=== PATIENT | female | born 1960 | race Caucasian/White ===

== ENCOUNTER 2017-10-13 17:11 | Emergency (ER) | payer OTHER ==
[~2017-10-13] VITALS: Ht 157.5 cm; Wt 86.2 kg
[2017-10-13] MEDS ORDERED: CLINDAMYCIN PHOS 600 MG/ 4 ML VIAL IM ONE (21:00)
[2017-10-13] MEDS ORDERED: LEVOFLOXACIN 500 MG TAB PO ONE (21:00)
[2017-10-13] MEDS ORDERED: CLINDAMYCIN PHOS 300MG/2ML VIAL ONE (21:02)
[2017-10-13] MEDS ORDERED: LEVOFLOXACIN 500 MG TAB ONE (21:02)
[2017-10-17] MEDS ORDERED: CLINDAMYCIN HC150 MG PO (09:49)
[2017-10-17] MEDS ORDERED: LEVAQUIN500 MG PO (09:49)
[2017-10-17] MEDS ORDERED: FARXIGA PO (09:50)
[2017-10-17] MEDS ORDERED: LEVOTHYROXINE50 MCG PO (09:50)
[2017-10-18] MEDS ORDERED: METFORMIN HCL500 M2 PO (05:31)
== END 2017-10-13 21:16 | disposition home or self-care (01) ==
LOC: ER 17:11
DX: L03.012 Cellulitis of left finger (principal)
CPT/HCPCS: 99282

== ENCOUNTER → 2017-10-14 | Outpatient (CLI) | payer OTHER ==
[~2017-10-14] MED LIST: CLINDAMYCIN HC150 MG PO; FARXIGA PO; LEVAQUIN500 MG PO; LEVOTHYROXINE50 MCG PO; METFORMIN HCL500 M2 PO
--- NOTE | 2017-10-14 18:28 | Diagnostic Imaging Report ---
TECHNIQUE: Magnetic resonance imaging of the LEFT HAND (index finger) was performed WITHOUT injected contrast. HISTORY: Puncture wound, infection, redness, pain, swelling, flexor tenosynovitis COMPARISON: None. FINDINGS: BONES: No focal or infiltrative bone marrow replacing abnormalities identified. No acute fracture or osteonecrosis. Incidentally, small cyst within the radial side of the heads of the third and fourth metacarpal bones. JOINTS: No dislocation or joint effusion. SOFT TISSUES: Diffuse soft tissue swelling of the index finger. No drainable fluid collection. The flexor and extensor tendons are intact. Mild edema surrounding the flexor tendons of the index finger. IMPRESSION: 1. Diffuse index finger cellulitis. 2. Mild index finger flexor tendon tenosynovitis. 3. No abscess or osteomyelitis. Signed by: Dr. Contreras Barney D.O., M.M.M. on 10/14/2017 6:25 PM
== END ==
LOC: MRI 15:07
PROVIDERS: ATTEND Plastic Surgery
DX: L03.012 Cellulitis of left finger (principal); M65.9 Synovitis and tenosynovitis, unspecified

== ENCOUNTER → 2017-10-18 | Day surgery (SDC) | payer OTHER ==
[2017-10-14 16:18] LABS: ANION GAP 16.7 mmol/L (8-16); CALCIUM 10.3 mg/dL (8.4-10.2); CREATININE, SERUM 1.09 mg/dL (0.57-1.11); POTASSIUM 4.7 mmol/L (3.5-5.1)
--- NOTE | 2017-10-14 17:39 | Diagnostic Imaging Report ---
PROCEDURE: Frontal and lateral views of the chest. COMPARISON: None. INDICATIONS: PRE-OP LEFT 2ND DIGIT SURGERY TUESDAY FINDINGS: Lines/tubes: None. Lungs: The lungs are well inflated. Linear opacities projecting in the left costophrenic angle region likely represents subsegmental atelectasis in the lingula. There is no evidence of pneumonia or pulmonary edema. Pleura: There is no pleural effusion or pneumothorax. Heart and mediastinum: The heart and the mediastinum are normal. Bones: No acute bony abnormality. IMPRESSION: 1. No acute cardiopulmonary abnormalities. Arvind Sanchez M.D. Dictated by: Arvind Sanchez M.D. on 10/14/2017 at 17:39 Electronically approved by: Arvind Sanchez M.D. on 10/14/2017 at 17:39
[~2017-10-18] MED LIST changes: +BACITRACIN 50,000 UNIT VIAL ONE; +BUPIVACAINE HCL 0.5% INJ 30 ML VIAL INJ ONE; +CEFAZOLIN SOD 1 GM VIAL ONE; +DEXAMETHASONE SOD PHOS INJ 4 MG/ML VIAL ONE; +EPHEDRINE SULFATE INJ 50 MG/10 ML SYR ONE; +FENTANYL CITRATE/PF 100MCG/2 ML INJ ONE; +LIDOCAINE HCL 2% LOCAL INJ 5 ML SDV VIAL INJ ONE; +MIDAZOLAM HCL 2 MG/2 ML VIAL ONE; +MUPIROCIN 2% OINT 22 GM TUBE ONE; +ONDANSETRON HCL INJ 2 MG/ML VIAL ONE; +PROPOFOL IV EMULSION 10 MG/ML 20 ML VIAL ONE; +SEVOFLURANE INHAL SOLN 250 ML PEN BTL ONE
--- OUTSIDE RECORDS SUMMARY | 2017-10-18 06:17 | XMS REPORT | Continuity of Care Document ---
Author Author [facility] Organization 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 Effective Date 08 Advance Directives Directive Response Recorded Date/Time Does the patient have an advance directive? No 07/29/10 6:57am If yes, is advance directive on file with [facility]? No 07/29/10 6:57am If not on file with [facility] will patient provide a copy? No 05/13/15 1:07pm Problems No problem information available. Medications No known medications. Social History Smoking Status Start Date Stop Date Never Smoker Hospital Discharge Instructions No hospital discharge instruction information available. Plan of Care Discharge Date 10/13/17 9:16pm Disposition HOME, SELF-CARE Condition at Discharge Stable Instructions/Education Provided Cellulitis Forms Provided Work/School Excuse Prescriptions See Medication Section Referrals PRASANNA ROMERO MD Address: [facility] [address] [place] [address] Additional Instructions/Education 1. follow up with hand specialist in am without fail 2. return to ed as needed Functional Status No functional status information available. Allergies, Adverse Reactions, Alerts No known allergies. Immunizations No immunization information available. Vital Signs Acute Vital Signs Vital Response Date/Time Height 5 ft 2 in 10/13/2017 6:43pm Weight 190 lb 10/13/2017 6:43pm Body Mass Index 34.8 kg/m^2 10/13/2017 6:43pm Results No relevant diagnostic test, laboratory data and/or discharge summary information available. Procedures No procedure information available. Encounters Encounter Location Arrival/Admit Date Discharge/Depart Date Attending Provider Departed Emergency Room [facility] 10/13/17 5:11pm 9:16pm PUMA WERNER MD
--- OUTSIDE RECORDS SUMMARY | 2017-10-18 06:17 | XMS REPORT ---
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 Allergies, Adverse Reactions, Alerts This patient has no known allergies or adverse reactions. Medications This patient has no known medications. Results Test Description Test Time Test Comments Text Results Atomic Results Result Comments MRI HAND LEFT WO [place] [address] Patient Name: SHILO NORIEGA MR #: [id number] : 1960 Age/Sex: 57/F Req # : [id number] Adm Physician: Ordered by: PRASANNA ROMERO MD Report #: [id number] Location: MRI Room/Bed: Procedure: [id number] MRI/MRI HAND LEFT WO Exam Date: Exam Time: REPORT STATUS: Signed TECHNIQUE: Magnetic resonance imaging of the LEFT HAND (index finger) was performed WITHOUT injected contrast. HISTORY: Puncture wound, infection, redness, pain, swelling, flexor tenosynovitis COMPARISON: None. FINDINGS: BONES: No focal or infiltrative bone marrow replacing abnormalities identified. No acute fracture or osteonecrosis. Incidentally, small cyst within the radial side of the heads of the third and fourth metacarpal bones. JOINTS: No dislocation or joint effusion. SOFT TISSUES: Diffuse soft tissue swelling of the index finger. No drainable fluid collection. The flexor and extensor tendons are intact. Mild edema surrounding the flexor tendons of the index finger. IMPRESSION: 1. Diffuse index finger cellulitis. 2. Mild index finger flexor tendon tenosynovitis. 3. No abscess or osteomyelitis. Signed by: Dr. Russ Barney D.O., M.M.M. on 10/14/2017 6:25 PM Dictated By: RUSS BARNEY DO 24 Transcribed By: ELIZA on 10/14/171824 COPY TO: PRASANNA ROMERO MD CHEST 2 VIEWS [place] [address] Patient Name: SHILO NORIEGA MR #: [id number] : 1960 Age/Sex: 57/F Req # : [id number] Adm Physician: Ordered by: PRASANNA ROMERO MD Report #: [id number] Location: OR Room/Bed: Procedure: [id number] DX/CHEST 2 VIEWS Exam Date: 10/14/17 Exam Time: 1700 REPORT STATUS: Signed PROCEDURE: Frontal and lateral views of the chest. COMPARISON: None. INDICATIONS: PRE-OP LEFT 2ND DIGIT SURGERY TUESDAY FINDINGS: Lines/tubes: None. Lungs: The lungs are well inflated. Linear opacities projecting in the left costophrenic angle region likely represents subsegmental atelectasis in the lingula. There is no evidence of pneumonia or pulmonary edema. Pleura: There is no pleural effusion or pneumothorax. Heart and mediastinum: The heart and the mediastinum are normal. Bones: No acute bony abnormality. IMPRESSION: 1. No acute cardiopulmonary abnormalities. Khadijah Sanchez M.D. Dictated by: Khadijah Sanchez M.D. on 10/14/2017 at 17:39 Electronically approved by: Khadijah Sanchez M.D. on 10/14/2017 at 17:39 Dictated By: KHADIJAH SANCHEZ MD 38 Transcribed By: ROSI on 10/14/171738 COPY TO: PRASANNA ROMERO MD
--- NOTE | 2017-10-18 10:50 | Operative Report ---
DATE OF PROCEDURE: October 18, 2017 PREOPERATIVE DIAGNOSIS: Purulent tenosynovitis, left index finger. POSTOPERATIVE DIAGNOSIS: Purulent tenosynovitis, left index finger. PROCEDURES 1. Drainage of left index finger flexor tendon sheath. 2. Tenosynovectomy of flexor tendon sheath, left index finger. ANESTHESIA: General. HISTORY: The patient is a 57-year-old female who sustained a puncture wound approximately 1 month ago at the flexion crease of the MP joint of the left index finger. Patient developed an obvious infection in the area, and she was treated with a variety of oral antibiotics over the past several weeks. The patient was seen in the office several days ago where it was felt that the patient may have flexor tenosynovitis. An MRI was obtained, which shows a confirmation of the infectious process extending to the flexor tendon sheath. The risks, benefits and alternatives were discussed with the patient. She is prepared to undergo the procedures outlined. DETAILS OF PROCEDURE: Patient was marked preoperatively in the holding area. She was brought to the operating theater. After the induction of adequate general anesthesia, she was prepped and draped in the supine position. A time out was performed. The procedure was begun by marking out a volar Isaías zigzag incision from the distal palm to the radial side of the index finger, and then from across the proximal phalanx from radial to ulnar. The left upper extremity was elevated for 3 minutes. Then a tourniquet was inflated to a pressure of 250 mmHg. The incision was made through the skin and subcutaneous tissues. Venous tributaries were controlled with the bipolar cautery. There was a small amount of purulent exudate noted within the subcutaneous space, and this was cultured both aerobically and anaerobically. At this point, the skin flap was elevated off of the flexor tendon sheath after identifying the radial and ulnar neurovascular bundles and protecting them. The confluence of the A1 priya and the interval and the A2 priya were noted to be bulging. The A1 priya was incised longitudinally, and there was obvious purulence within the flexor tendon sheath. This was cultured as well. The proximal portion of the A2 priya was noted to be involved in the infectious process, and this was opened as well. There was tenosynovium adherent to the flexor tendons of the index finger, and this was radically excised. At this point, using a lavage system several hundred mL of antibiotic containing solution was irrigated into the flexor tendon sheath until the effluent was noted to be clear. At this point, packing was placed within the tendon sheath. Then the skin was approximated loosely with 5-0 nylon in an interrupted horizontal mattress fashion. A Marcaine field block was performed at the operative site. The tourniquet was deflated. All the fingers pinked up nicely. A sterile bulking forming bandage was applied. Patient tolerated the procedure well, and was brought to the recovery room in satisfactory condition and discharged with a postoperative instruction sheet, as well as a followup appointment. Job#: [id number] CHARLI
== END | disposition home or self-care (01) ==
LOC: OR 06:15
PROVIDERS: ATTEND Plastic Surgery
DX: M65.842 Other synovitis and tenosynovitis, left hand (principal); S61.231A Puncture wound without foreign body of left index finger without damage to nail, initial encounter; I10 Essential (primary) hypertension; E11.9 Type 2 diabetes mellitus without complications; M54.9 Dorsalgia, unspecified; M54.2 Cervicalgia; R06.83 Snoring; E03.9 Hypothyroidism, unspecified; F32.9 Major depressive disorder, single episode, unspecified; F41.9 Anxiety disorder, unspecified; X58.XXXA Exposure to other specified factors, initial encounter; Z87.891 Personal history of nicotine dependence
CPT/HCPCS: 26020; 36415 ×2; 71046; 80048; 82948; 87071; 87075; 87205; 93005; J0690; J1100; J2001; J2250; J2405

== ENCOUNTER 2021-11-10 16:16 | Emergency (ER) | payer OTHER ==
[~2021-11-10] VITALS: Ht 157.5 cm; Wt 86.2 kg
[~2021-11-10 16:16] MED LIST changes: -BACITRACIN 50,000 UNIT VIAL ONE; -BUPIVACAINE HCL 0.5% INJ 30 ML VIAL INJ ONE; -CEFAZOLIN SOD 1 GM VIAL ONE; -DEXAMETHASONE SOD PHOS INJ 4 MG/ML VIAL ONE; -EPHEDRINE SULFATE INJ 50 MG/10 ML SYR ONE; -FENTANYL CITRATE/PF 100MCG/2 ML INJ ONE; -LIDOCAINE HCL 2% LOCAL INJ 5 ML SDV VIAL INJ ONE; -MIDAZOLAM HCL 2 MG/2 ML VIAL ONE; -MUPIROCIN 2% OINT 22 GM TUBE ONE; -ONDANSETRON HCL INJ 2 MG/ML VIAL ONE; -PROPOFOL IV EMULSION 10 MG/ML 20 ML VIAL ONE; -SEVOFLURANE INHAL SOLN 250 ML PEN BTL ONE
[2021-11-10] MEDS ORDERED: AMOXICILLIN/CLAVULANATE K 500 MG TAB PO STA (17:37)
[2021-11-10] MEDS ORDERED: TRAMADOL HCL 50 MG TAB PO STA (17:37)
[2021-11-10] MEDS ORDERED: FLUORESCEIN SOD(OPTH) 1 MG STRP OP ONE (17:45)
[2021-11-10] MEDS ORDERED: TETRACAINE HCL 0.5% OPTH SOLN 4 ML BTL OP ONE (18:45)
[2021-11-10] MEDS ORDERED: AUGMENTIN 500-1 EACH PO (18:57)
[2021-11-10] MEDS ORDERED: ULTRAM50 MG PO (18:57)
== END 2021-11-10 19:18 | disposition home or self-care (01) ==
LOC: ER 17:34
DX: H11.32 Conjunctival hemorrhage, left eye (principal); W55.03XA Scratched by cat, initial encounter; Y92.008 Other place in unspecified non-institutional (private) residence as the place of occurrence of the external cause; E78.5 Hyperlipidemia, unspecified
CPT/HCPCS: 99283